=== PATIENT | female | born 1940 | race African-American/Black ===

== ENCOUNTER 2020-01-25 13:10 | Emergency (ER) | payer OTHER ==
[~2020-01-25] VITALS: Ht 154.9 cm; Wt 92.5 kg
[2020-01-25 13:21] VITALS: BP_SYST 132
[2020-01-25] MEDS ORDERED: IPRATROPIUM BROM 0.5 MG/2.5 ML VIAL.NEB (ATROVENT) INH ONE (13:45)
[2020-01-25] MEDS ORDERED: ALBUTEROL SULFATE 0.083% 2.5 MG/3 ML VIAL.NEB INH ONE (13:45)
[2020-01-25] MEDS ORDERED: PREDNISONE 20 MG TABLET PO ONE (13:45)
[2020-01-25 14:59] LABS: LYMPHOCYTES # (AUTO) 2.7 K/uL (1.0-5.5); MONOCYTES # (AUTO) 0.9 K/uL (0.0-1.0); NEUTROPHILS # (AUTO) 1.7 K/uL (1.8-7.7); WHITE BLOOD COUNT (AUTO) 5.4 K/uL (4.8-10.8)
[2020-01-25 15:02] LABS: ANION GAP 13 (5-15); CALCIUM 8.7 mg/dL (8.4-11.0); CHLORIDE 98 mmol/L (98-107); CREATININE 1.35 mg/dL (0.55-1.30); GLUCOSE 101 mg/dL (70-99); POTASSIUM 3.6 mmol/L (3.5-5.1); SODIUM SERUM 136 mmol/L (136-145); UREA NITROGEN, BLOOD 22 mg/dL (8-21)
[2020-01-25 15:04] LABS: BASOPHILS % (AUTO) 0.6 % (0.0-2.0); EOSINOPHILS % (AUTO) 0.8 % (0.0-4.0); HEMOGLOBIN 14.8 g/dL (12.0-16.0); LYMPHOCYTES % (AUTO) 50.1 % (20.5-51.5); MEAN CORPUSCULAR HEMOGLOBIN 32 pg (27-31); MEAN CORPUSCULAR HGB CONC 33 % (32-36); MEAN CORPUSCULAR VOLUME 98 fL (79.0-98.0); MONOCYTES % (AUTO) 17.1 % (1.7-9.3); NEUTROPHILS % (AUTO) 31.4 % (40.0-70.0); RED BLOOD CELL COUNT(AUTO) 4.61 MIL/uL (4.2-6.2); RED CELL DISTRIBUTION WIDTH 13.5 % (9.0-15.0)
[2020-01-25 15:08] LABS: ALANINE AMINOTRANSFERASE 68 U/L (12-78); ALBUMIN 3.5 g/dL (3.4-4.8); ASPARTATE AMINOTRANSFERASE 66 U/L (10-37); TOTAL BILIRUBIN 0.2 mg/dL (0.0-1.0)
[2020-01-25 15:16] LABS: PLATELET COUNT (AUTO) 483 K/uL (130-430)
[2020-01-25 16:16] VITALS: BP_SYST 122
--- NOTE | 2020-01-25 16:17 | NUR ---
Patient given written and verbal discharge instructions and verbalizes understanding. ER MD discussed with patient the results and treatment provided. Patient in stable condition. ID arm band removed. Rx of prednisone, zithromax, naprosyn, promethazine given. Patient educated on pain management and to follow up with PMD. Pain Scale 0/10.Opportunity for questions provided and answered. Medication side effect fact sheet provided.
== END 2020-01-25 16:16 | disposition home or self-care (01) ==
LOC: SED 13:10
DX: J10.1 Influenza due to other identified influenza virus with other respiratory manifestations (principal); J20.9 Acute bronchitis, unspecified; R51 Headache; J44.9 Chronic obstructive pulmonary disease, unspecified; E11.9 Type 2 diabetes mellitus without complications; E78.00 Pure hypercholesterolemia, unspecified; E87.6 Hypokalemia; Z88.0 Allergy status to penicillin
CPT/HCPCS: 36415; 71045; 80053; 83605; 85025; 86710; 87040; 94640; 99284; J7512; J7613